=== PATIENT | male | born 2000 | race Caucasian/White ===

== ENCOUNTER 2019-02-14 23:42 | Emergency (ER) | payer OTHER ==
[~2019-02-14] VITALS: Ht 170.2 cm; Wt 54.4 kg
[2019-02-15 00:14] VITALS: BP 113/64
== END 2019-02-15 00:21 | disposition home or self-care (01) ==
LOC: M.ERS 23:42
DX: S39.012A Strain of muscle, fascia and tendon of lower back, initial encounter (principal); X58.XXXA Exposure to other specified factors, initial encounter; Y93.89 Activity, other specified; Y92.89 Other specified places as the place of occurrence of the external cause; Y99.8 Other external cause status